=== PATIENT | male | born 1965 | race Caucasian/White ===

== ENCOUNTER 2023-02-25 13:38 | Outpatient (AMB) | payer OTHER, SELFPAY ==
--- NOTE | 2023-02-25 14:15 | HO.SPINEOV ---
Intake Intake Visit Reasons: schwannoma Intake Note: Mr. Sharma is here today Re: Schwannoma. MRI done @ [facility]/brought disc. 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 HPI: 58-year-old male is suffering from right groin pain radiating to his thigh and right arm pain with radiation into his finger. The groin pain comes after sudden movements or longstanding. The arm pain can be elicited with pushing on his axilla or stretching of his right arm. The symptoms are caused by proven schwannoma in those regions. His symptoms are progressive but they are not causing neurological deficits. An option would be to remove them surgically with possible complication of causing neurological deficits. These type of surgeries are rare and therefore I think he is better off with a neurosurgeon that performs peripheral nerve surgeries routinely. I recommended Elvis Schulte at [facility]. I tried to make an appointment for him but was unsuccessful. I recommended to the patient to go on their website and request an appointment. The total time spent was 45 minutes in counseling ,coordination of plan, personal review of imaging, and subsequent plan Jameel Chen MD, PhD [facility] Trained Neurosurgeon Director, [facility] Coding Level of Care Code New Pt Level 4 (96641) Diagnoses Schwannoma of axilla D36.12 Schwannoma of nerve of lower extremity D36.13
== END 2023-02-25 15:03 | disposition home or self-care (01) ==
PROVIDERS: PCP Physician Assistant; Visit Provider Neurological Surgery
DX: D36.12 Benign neoplasm of peripheral nerves and autonomic nervous system, upper limb, including shoulder (principal); D36.13 Benign neoplasm of peripheral nerves and autonomic nervous system of lower limb, including hip
CPT/HCPCS: 99204

== ENCOUNTER → 2023-02-25 13:38 | Outpatient (BNVA) | payer OTHER, SELFPAY | PROVIDERS: PCP Physician Assistant; Visit Provider Neurological Surgery ==